=== PATIENT | male | born 1985 | race Asian ===

== ENCOUNTER 2016-10-01 13:38 | Inpatient (IN) | payer OTHER ==
[2016-10-01] VITALS (14 sets, daily range): BP systolic 102–128; BP diastolic 60–79; PULSE 58–86; RESP 13–31; Ht 172.7 cm; Wt 68.3 kg
[~2016-10-01] VITALS: Ht 172.7 cm; Wt 68.3 kg
[2016-10-01] MEDS ORDERED: SOD CHLORIDE 0.9% 1,000 ML IV STA (15:37)
[2016-10-01] MEDS ORDERED: morphine 4 MG/ML VIAL IV STA (15:37)
[2016-10-01] MEDS ORDERED: ONDANSETRON 4 MG INJ IV STA (15:37)
[2016-10-01 15:52] LABS: ADD SCAN DIFF NO
[2016-10-01 15:56] LABS: BASOPHILS % 0.4 % (0.0-2.0); EOSINOPHILS # 0.3 10^3/ul (0.0-0.5); EOSINOPHILS % 2.6 % (0.0-7.0); HEMATOCRIT 42.4 % (42.0-52.0); HEMOGLOBIN 13.2 g/dl (14.0-18.0); LYMPHOCYTES # 2.7 10^3/ul (0.8-2.9); LYMPHOCYTES % 26.8 % (15.0-51.0); MEAN CORPUSCULAR HEMOGLOBIN 24.5 pg (29.0-33.0); MEAN CORPUSCULAR HGB CONC 31.1 g/dl (32.0-37.0); MEAN CORPUSCULAR VOLUME 78.7 fl (82.0-101.0); MEAN PLATELET VOLUME 10.7 fl (7.4-10.4); MONOCYTE # 0.6 10^3/ul (0.3-0.9); MONOCYTES % 5.8 % (0.0-11.0); NEUTROPHIL # 6.4 10^3/ul (1.6-7.5); NEUTROPHILS % 63.5 % (39.0-77.0); PLATELET COUNT 451 10^3/UL (140-415); RED BLOOD COUNT 5.39 10^6/ul (4.70-6.10); RED CELL DISTRIBUTION WIDTH 13.5 % (11.5-14.5)
[2016-10-01] MEDS ORDERED: PIPER-TAZO 3.375 GM IV (PMX) 100 ML IVPB ONE (16:00)
[2016-10-01 16:20] LABS: ALBUMIN 4.7 g/dl (3.3-4.9); ALBUMIN/GLOBULIN RATIO 1.09; BILIRUBIN,INDIRECT 0.2 mg/dl (0-1.1); BILIRUBIN,TOTAL 0.2 mg/dl (0.2-1.3); CALCIUM 9.8 mg/dl (8.4-10.2); CREATININE 0.82 mg/dl (0.61-1.24); POTASSIUM 4.4 mmol/L (3.5-5.1)
[2016-10-01 16:37] LABS: ADD UMIC YES; URINE BILIRUBIN (Dip) NEGATIVE (NEGATIVE); URINE BLOOD (Dip) NEGATIVE (NEGATIVE); URINE COLOR LT. YELLOW (YELLOW); URINE GLUCOSE (Dip) NEGATIVE (NEGATIVE); URINE KETONES (Dip) NEGATIVE (NEGATIVE); URINE LEUKOCYTE ESTERASE (Dip) TRACE (NEGATIVE); URINE NITRITE (Dip) NEGATIVE (NEGATIVE); URINE TOTAL PROTEIN (Dip) NEGATIVE (NEGATIVE); URINE UROBILINOGEN (Dip) 0.2 E.U./dL (0.1-1.0)
[2016-10-01] MEDS ORDERED: IOHEXOL 300MG/ML 150 ML BTL ONE (16:41)
[2016-10-01] MEDS ORDERED: SOD CHLORIDE 0.9% 100 ML ONE (16:41)
[2016-10-01 17:01] LABS: SQUAMOUS EPITHELIAL CELL,UR RARE; URINE RBCS NONE SEEN /HPF (0)
--- NOTE | 2016-10-01 17:13 | RADRPT ---
PROCEDURE: CT abdomen and pelvis with contrast. CLINICAL INDICATION: Abdominal pain. Perirectal abscess. TECHNIQUE: CT scan of the abdomen and pelvis with contrast was performed after the uneventful intravenous admin istration of 100 cc of Omnipaque-300. Coronal and sagittal reformatted images were obtained from the axial source images. The total exam CTDI equals 9.02 mGy and the total exam DLP equals 547.01 mGy-c m. One or more of the following dose reduction techniques were used: - Automated exposure control. - Adjustment of the mA and/or kV according to patient size. - Use of iterative reconstruction technique. COMPARISON: None available. FINDINGS: Visualized lower thorax: The visualized lung bases are clear. The visualized heart is unremarkable. Hepatobiliary system and spleen: The liver is normal in size and density with no focal hepatic lesion identified. There is no intra o r extrahepatic biliary ductal dilatation. The gallbladder is unremarkable. The spleen is unremarkabl e. The pancreas is unremarkable. Adrenal glands and genitourinary system: The adrenal glands are unremarkable. There are no renal masses or hydronephrosis. The urinary bladde r is unremarkable. The prostate gland and seminal vesicles are unremarkable. Gastrointestinal system: The stomach and small bowel are unremarkable. There is no evidence of bowel obstruction. The appendi x is in the right lower quadrant and is unremarkable. There is distal rectal wall thickening. There is a rim enhancing collection that is contiguous with the right lateral aspect of the distal rectum that extends posterolaterally and inferiorly into the right ischial rectal fossa and contains multi ple small foci of air measuring 3.3 x 2.9 cm in greatest axial dimension and 5.7 cm in craniocaudal dimension. There is inflammatory change in the surrounding subcutaneous fat. The collection does n ot extend to the skin surface. Peritoneum, vascular system, lymphatics: There is no free intraperitoneal air or free fluid. There is no mesenteric or retroperitoneal adenop athy. The aorta is nonaneurysmal. Musculoskeletal system: There are no concerning osseous lesions. IMPRESSION: 1. Perirectal abscess measuring 3.3 x 2.9 x 5.7 cm arising from the right lateral aspect of the dis dennys rectum extending posterolaterally and inferiorly into the right ischiorectal fossa with inflamma tory change in the surrounding gluteal soft tissues, but no extension to the skin surface. These findings discussed with Dr. Dr. Hardy in the ED at 1711 hours on 10/01/2016. RPTAT: HLBP .Nando Strong MD, MD Date Time Electronically viewed and signed by .Nando Strong MD, MD on 10/01/2016 17:13 .P/
[2016-10-01] MEDS ORDERED: ACETAMINOPHEN 325 MG TAB PO PRN ×3 (18:00→22:30)
[2016-10-01] MEDS ORDERED: ONDANSETRON 4 MG INJ IV PRN ×4 (18:00→22:30)
[2016-10-01] MEDS ORDERED: BUPIVACAINE 0.25%/EPI (SDV) 30 ML INJ ONE (18:20)
--- NOTE | 2016-10-01 18:43 | CONS ---
Date/Time of Note Date/Time of Note DATE: 10/01/16 TIME: 18:40 Assessment/Plan Assessment/Plan Chief Complaint/Hosp Course 31-year-old male with perirectal abscess * Patient will require incision and drainage * The above was discussed with the patient including all risks and benefits of the procedure including the possibility of future fistula formation and abscess recurrence requiring subsequent surgery. * He understands and agrees to treatment plan as outlined. Informed consent will be obtained and he will be scheduled for incision and drainage. Problems: Consultation Date/Type/Reason Admit Date/Time Date of Consultation: October 01, 2016 Type of Consultation: GENERAL SURGERY Reason for Consultation Perirectal abscess Hx of Present Illness Patient is an otherwise healthy 31-year-old male who presented to the emergency room complaining of perianal and rectal pain. This is been present for the past 2 weeks. He was seen by his PMD and referred for possible perirectal abscess. He denies any diarrhea/constipation. He reports that he did feel feverish, but he did not take his temperature. He denies any similar episodes of pain in the past. 14 point review systems was conducted and was negative except for that which is mentioned in HPI Past Medical History Medical History: no pertinent history Past Surgical History Past Surgical Hx: no surgical history Family History Significant Family History: no pertinent family hx Social History Alcohol Use: none Smoking Status: Never smoker Exam/Review of Systems Vital Signs Vitals Vital Signs Date Time Temp Pulse Resp B/P Pulse Ox O2 Delivery O2 Flow Rate FiO2 10/01/16 13:41 98.8 88 18 97/61 99 Exam GENERAL: Awake, alert, oriented x 3. No acute distress. SKIN: No jaundice. HEENT: PERRLA, EOMI, No Scleral Icterus NECK: Supple without JVD CARDIOVASCULAR: S1S2, regular rate and rhythm. No murmurs appreciated. RESPIRATORY: Clear to auscultation bilaterally. ABDOMEN: Soft, bowel sounds present, nondistended, nontender to palpation. RECTAL: There is erythema and induration of the right lateral perianal area. There is no fluctuance at skin level. EXTREMITIES: Free range of motion x 4. No cyanosis, edema, or clubbing. NEUROLOGIC: Cranial nerves II-XII are intact. Sensation is intact grossly. Results Result Diagram: 10/01/16 1550 10/01/16 1550 Results 24 hrs Laboratory Tests Test 10/01/16 15:42 10/01/16 15:50 Urine Color LT. YELLOW Urine Clarity CLEAR Urine pH 5.5 Urine Specific Media 1.010 Urine Ketones NEGATIVE Urine Nitrite NEGATIVE Urine Bilirubin NEGATIVE Urine Urobilinogen 0.2 E.U./dL Urine Leukocyte Esterase TRACE H Urine Microscopic RBC NONE SEEN Urine Microscopic WBC 0-2 Urine Squamous Epithelial Cells RARE Urine Hemoglobin NEGATIVE Urine Glucose NEGATIVE Urine Total Protein NEGATIVE White Blood Count 10.0 Red Blood Count 5.39 Hemoglobin 13.2 L Hematocrit 42.4 Mean Corpuscular Volume 78.7 L Mean Corpuscular Hemoglobin 24.5 L Mean Corpuscular Hemoglobin Concent 31.1 L Red Cell Distribution Width 13.5 Platelet Count 451 H Mean Platelet Volume 10.7 H Neutrophils % 63.5 Lymphocytes % 26.8 Monocytes % 5.8 Eosinophils % 2.6 Basophils % 0.4 Nucleated Red Blood Cells % 0.0 Neutrophils # 6.4 Lymphocytes # 2.7 Monocytes # 0.6 Eosinophils # 0.3 Basophils # 0.0 Nucleated Red Blood Cells # 0.0 Sodium Level 139 Potassium Level 4.4 Chloride Level 97 Carbon Dioxide Level 31 Anion Gap 15 Blood Urea Nitrogen 11 Creatinine 0.82 Glucose Level 105 Calcium Level 9.8 Total Bilirubin 0.2 Direct Bilirubin 0.00 Indirect Bilirubin 0.2 Aspartate Amino Transf (AST/SGOT) 29 Alanine Aminotransferase (ALT/SGPT) 93 H Alkaline Phosphatase 185 H Total Protein 9.0 H Albumin 4.7 Globulin 4.30 H Albumin/Globulin Ratio 1.09 Lipase 30 Procedures Procedures PROCEDURE: CT abdomen and pelvis with contrast. CLINICAL INDICATION: Abdominal pain. Perirectal abscess. TECHNIQUE: CT scan of the abdomen and pelvis with contrast was performed after the uneventful intravenous administration of 100 cc of Omnipaque-300. Coronal and sagittal reformatted images were obtained from the axial source images. The total exam CTDI equals 9.02 mGy and the total exam DLP equals 547.01 mGy-cm. One or more of the following dose reduction techniques were used: - Automated exposure control. - Adjustment of the mA and/or kV according to patient size. - Use of iterative reconstruction technique. COMPARISON: None available. FINDINGS: Visualized lower thorax: The visualized lung bases are clear. The visualized heart is unremarkable. Hepatobiliary system and spleen: The liver is normal in size and density with no focal hepatic lesion identified. There is no intra or extrahepatic biliary ductal dilatation. The gallbladder is unremarkable. The spleen is unremarkable. The pancreas is unremarkable. Adrenal glands and genitourinary system: The adrenal glands are unremarkable. There are no renal masses or hydronephrosis. The urinary bladder is unremarkable. The prostate gland and seminal vesicles are unremarkable. Gastrointestinal system: The stomach and small bowel are unremarkable. There is no evidence of bowel obstruction. The appendix is in the right lower quadrant and is unremarkable. There is distal rectal wall thickening. There is a rim enhancing collection that is contiguous with the right lateral aspect of the distal rectum that extends posterolaterally and inferiorly into the right ischial rectal fossa and contains multiple small foci of air measuring 3.3 x 2.9 cm in greatest axial dimension and 5.7 cm in craniocaudal dimension. There is inflammatory change in the surrounding subcutaneous fat. The collection does not extend to the skin surface. Peritoneum, vascular system, lymphatics: There is no free intraperitoneal air or free fluid. There is no mesenteric or retroperitoneal adenopathy. The aorta is nonaneurysmal. Musculoskeletal system: There are no concerning osseous lesions. IMPRESSION: 1. Perirectal abscess measuring 3.3 x 2.9 x 5.7 cm arising from the right lateral aspect of the distal rectum extending posterolaterally and inferiorly into the right ischiorectal fossa with inflammatory change in the surrounding gluteal soft tissues, but no extension to the skin surface. These findings discussed with Dr. Dr. Nichole in the ED at 1711 hours on 2016. RPTAT: HLBP .Nando Strong MD, MD Date Time Electronically viewed and signed by .Nando Strong MD, MD on 10/01/2016 17:13 .P/ CC: AYAAN NICHOLE MD, MICHAEL A. MD October 01, 2016 18:43
[2016-10-01] MEDS ORDERED: PROPOFOL 20 ML ONE (18:44)
[2016-10-01] MEDS ORDERED: METOCLOPRAMIDE 10 MG INJ ONE (18:44)
[2016-10-01] MEDS ORDERED: MIDAZOLAM 1 MG/ML 2 ML INJ ONE (18:44)
[2016-10-01] MEDS ORDERED: SUCCINYLCHOLINE CHLORIDE 100 MG/5 ML SYG IV ONE (18:44)
[2016-10-01] MEDS ORDERED: ONDANSETRON 4 MG INJ ONE (18:44)
--- NOTE | 2016-10-01 18:59 | ERA ---
ER Documentation Chief Complaint Date/Time DATE: 10/01/16 TIME: 18:57 Chief Complaint SENT BY PMD FOR PERIRECTAL ABCESS X 2 WEEKS HPI Patient is a 31-year-old male with no medical problems who presents for a perirectal abscess. The patient has had pain in his buttock for the past 2 weeks. He had fevers as well. He had pain when he sits down. He feels says that it is slightly better now and he was on Cipro and Flagyl. The patient has rectal bleeding. He went to his primary doctor today who sent him to the ER for surgical evaluation. Upon review of old medical records this is the patient 's first visit to the emergency department. ROS All systems reviewed and are negative except as per history of present illness. Allergies Allergies: Coded Allergies: No Known Allergy (Unverified , 10/01/16) PMhx/Soc Medical and Surgical Hx: pt denies Medical Hx, pt denies Surgical Hx Hx Alcohol Use: No Hx Substance Use: No Hx Tobacco Use: No Smoking Status: Never smoker FmHx Family History: No diabetes Physical Exam Vitals Vital Signs Date Time Temp Pulse Resp B/P Pulse Ox O2 Delivery O2 Flow Rate FiO2 10/01/16 13:41 98.8 88 18 97/61 99 Physical Exam Const: Mild distress Head: Atraumatic Eyes: Normal Conjunctiva ENT: Normal External Ears, Nose and Mouth. Neck: Full range of motion..~ No meningismus. Resp: Clear to auscultation bilaterally Cardio: Regular rate and rhythm, no murmurs Abd: Soft, non tender, non distended. Normal bowel sounds Skin: No petechiae or rashes Back: No midline or flank tenderness Ext: No cyanosis, or edema Neur: Awake and alert Rectal: Patient has induration of the right gluteus area without obvious fluctuance, there is no obvious hemorrhage from the rectum at this time Result Diagram: 10/01/16 1550 10/01/16 1550 Results 24 hrs Laboratory Tests Test 10/01/16 15:42 10/01/16 15:50 Urine Color LT. YELLOW Urine Clarity CLEAR Urine pH 5.5 Urine Specific Bradley 1.010 Urine Ketones NEGATIVE Urine Nitrite NEGATIVE Urine Bilirubin NEGATIVE Urine Urobilinogen 0.2 E.U./dL Urine Leukocyte Esterase TRACE Urine Microscopic RBC NONE SEEN/HPF Urine Microscopic WBC 0-2/HPF Urine Squamous Epithelial Cells RARE Urine Hemoglobin NEGATIVE Urine Glucose NEGATIVE% Urine Total Protein NEGATIVE White Blood Count 10.010^3/ul Red Blood Count 5.3910^6/ul Hemoglobin 13.2g/dl Hematocrit 42.4% Mean Corpuscular Volume 78.7fl Mean Corpuscular Hemoglobin 24.5pg Mean Corpuscular Hemoglobin Concent 31.1g/dl Red Cell Distribution Width 13.5% Platelet Count 29029^3/UL Mean Platelet Volume 10.7fl Neutrophils % 63.5% Lymphocytes % 26.8% Monocytes % 5.8% Eosinophils % 2.6% Basophils % 0.4% Nucleated Red Blood Cells % 0.0/100WBC Neutrophils # 6.410^3/ul Lymphocytes # 2.710^3/ul Monocytes # 0.610^3/ul Eosinophils # 0.310^3/ul Basophils # 0.010^3/ul Nucleated Red Blood Cells # 0.010^3/ul Sodium Level 139mmol/L Potassium Level 4.4mmol/L Chloride Level 97mmol/L Carbon Dioxide Level 31mmol/L Anion Gap 15 Blood Urea Nitrogen 11mg/dl Creatinine 0.82mg/dl Glucose Level 105mg/dl Calcium Level 9.8mg/dl Total Bilirubin 0.2mg/dl Direct Bilirubin 0.00mg/dl Indirect Bilirubin 0.2mg/dl Aspartate Amino Transf (AST/SGOT) 29IU/L Alanine Aminotransferase (ALT/SGPT) 93IU/L Alkaline Phosphatase 185IU/L Total Protein 9.0g/dl Albumin 4.7g/dl Globulin 4.30g/dl Albumin/Globulin Ratio 1.09 Lipase 30U/L Current Medications Medications (Trade) Dose Ordered Sig/Isabell Route PRN Reason Start Time Stop Time Status Last Admin Dose Admin Sodium Chloride (NS) 1,000 ml @ 1,000 mls/hr Q1H STAT IV 10/01/16 15:37 10/01/16 16:36 DC 10/01/16 15:59 Morphine Sulfate (morphine) 4 mg ONCE STAT IV 10/01/16 15:37 10/01/16 15:38 DC Ondansetron HCl 4 mg 4 mg ONCE STAT IV 10/01/16 15:37 10/01/16 15:38 DC Piperacillin Sod/ Tazobactam Sod (Zosyn 3.375gm/ 100 ml (Pmx)) 100 ml @ 200 mls/hr ONCE ONCE IVPB 10/01/16 16:00 10/01/16 16:29 DC 10/01/16 16:00 IV Flush 10 ml 10 ml STK-MED ONCE .ROUTE 10/01/16 16:41 10/01/16 16:42 DC 10/01/16 17:11 Sodium Chloride (NS) 100 ml @ ud STK-MED ONCE .ROUTE 10/01/16 16:41 10/01/16 16:42 DC 10/01/16 17:11 Iohexol (Omnipaque 300mg/ ml) 150 ml STK-MED ONCE .ROUTE 10/01/16 16:41 10/01/16 16:42 DC 10/01/16 17:12 Ondansetron HCl (Zofran Inj) 4 mg BRIDGE ORDER PRN IV NAUSEA AND/OR VOMITING 10/01/16 18:00 10/02/16 17:59 Acetaminophen (Tylenol Tab) 650 mg ER BRIDGE PRN PO MILD PAIN/FEVER 10/01/16 18:00 10/02/16 17:59 Bupivacaine HCl/ Epinephrine Bitart (Marcaine 0.25%/ Epi (Sdv) 30 ml) 30 ml STK-MED ONCE .ROUTE 10/01/16 18:20 10/01/16 18:21 DC 10/01/16 18:35 Procedures/MDM CT abdomen and pelvis shows deep ischio rectal fossa infection with abscess per radiology. Patient is a 31-year-old male presents with acute perirectal abscess. CT confirmed deep perirectal abscess. The patient was given Zosyn empirically. His laboratory studies are basically normal. I spoke with Dr. Ramirez the surgeon on-call who will see the patient and likely take the patient to the operating room for removal. The patient will be admitted to the care of Dr. Joseph as he has [facility] insurance and Dr. Joseph is admitting for [facility]. The patient will be admitted to a medical surgical bed. Departure Diagnosis: Primary Impression: Perirectal abscess Condition: AYANA Howell MD October 01, 2016 18:59
[2016-10-01] MEDS ORDERED: HYDROmorphONE 2 MG/ML SYG ONE (19:18)
[2016-10-01] MEDS ORDERED: METOCLOPRAMIDE 10 MG INJ IV PRN (19:30)
[2016-10-01] MEDS ORDERED: MEPERIDINE 25 MG INJ IV PRN (19:30)
[2016-10-01] MEDS ORDERED: DIPHENHYDRAMINE 50 MG INJ IV PRN (19:30)
[2016-10-01] MEDS ORDERED: HYDROmorphONE (0.2 MG/ML) 10ML SYG IV PRN ×3 (19:30)
[2016-10-01] MEDS ORDERED: THROMBIN 5000 UNIT VIAL ONE (19:31)
[2016-10-01] MEDS ORDERED: KETOROLAC 30 MG INJ ONE (19:37)
--- NOTE | 2016-10-01 19:47 | OPR ---
Date/Time of Note Date/Time of Note DATE: 10/01/16 TIME: 19:42 Operative Report Procedure Date: October 01, 2016 Preoperative Diagnosis Perirectal abscess Postoperative Diagnosis Perirectal abscess Operation Performed Incision and drainage of perirectal abscess Surgeon: HINA DE LA CRUZ MD Anesthesia: general Anesthesiologist: TITUS BERTRAND MD Estimated Blood Loss: minimal Specimens Wound cultures Complications: None Pt Condition Post Procedure: stable Disposition: PACU Indications The patient is an otherwise healthy 31-year-old male who presented to the emergency room complaining of a 2 week history of rectal pain. A CT scan of the abdomen and pelvis showed an approximately 5 cm perirectal abscess. Patient was scheduled for incision and drainage. All risks and benefits of the procedure including, but not limited to: Prolonged wound infection, prolonged wound healing, excessive bleeding, incontinence to feces and/or gas which may be temporary versus permanent, abscess recurrence, possible fistula formation, need for subsequent surgery, etc. were all explained to the patient in full detail. He fully understood and wished to proceed with the procedure. Informed consent was obtained. Operative\Procedure Findings History of rectal abscess with pus Procedure Description The patient was brought to the operating room and placed supine on the operating table. Bilateral sequential compression devices were placed on both lower extremities. A dose of broad-spectrum perioperative intravenous antibiotics was given. After the induction of smooth general endotracheal anesthesia the patient was placed in the lithotomy position using Juan stirrups with pressure points padded. The perineal area was then prepped and draped in standard surgical fashion. After performance of the surgical timeout digital rectal exam was performed which showed some induration in the right lateral rectal wall. An 18-gauge needle connected to a 10 cc syringe was used to perform aspiration in the right ischiorectal fossa. The area of the abscess was confirmed with aspiration of pus. A cruciate incision was then made over this area using a 15 blade scalpel. Blunt dissection was done into the subcutaneous tissues. The abscess cavity was reached and copious amounts of pus was drained. Microbiological cultures were taken. Using blunt finger dissection the loculations of the abscess cavity were broken up. Wound cavity was then irrigated with copious amounts of warm normal saline. Hemostasis was then inspected for and obtained using combination of direct pressure and Bovie electrocautery. With adequate hemostasis obtained wound was then packed with 1 inch iodoform packing soaked in thrombin. The wound was then cleaned and sterile dressings were applied. Patient was then awoken from anesthesia and transferred to the recovery room in stable condition. All counts were correct at the end of the case 2 HINA DE LA CRUZ MD October 01, 2016 19:47
[2016-10-01] MEDS ORDERED: HYDROCODONE/APAP (10/325) TAB PO PRN (20:00)
[2016-10-01] MEDS ORDERED: KETOROLAC 30 MG INJ IV PRN (20:00)
[2016-10-01] MEDS ORDERED: DEXTROSE 5%-0.45% NACL 1,000 ML IV SCH (20:00)
[2016-10-01] MEDS ORDERED: HYDROCODONE/APAP (5/325) TAB PO PRN (20:00)
[2016-10-01] MEDS: DOCUSATE SODIUM 100 MG CAP PO SCH (21:00)
--- NOTE | 2016-10-01 22:28 | QN ---
Documentation Comment [id number] MADALYN ESPAÑA MD October 01, 2016 22:28
[2016-10-01] MEDS ORDERED: DOCUSATE SODIUM 100 MG CAP PO PRN (22:30)
[2016-10-01] MEDS ORDERED: MAGNESIUM HYDROXIDE 30ML CUP PO PRN (22:30)
[2016-10-01] MEDS ORDERED: NACL 0.9% 3 ML SYG IV SCH (22:30)
[2016-10-01] MEDS: DEXTROSE 5%-0.45% NACL 1,000 ML IV SCH (22:45)
[2016-10-01] MEDS: AMPICILLIN/SULB 3 GM/NS (PMX) 100 ML IVPB SCH (22:45)
--- NOTE | 2016-10-01 23:19 | HP ---
DATE OF ADMISSION: 10/01/2016 HISTORY OF PRESENT ILLNESS: The patient is 31-year-old male with no significant past medical histor y, presented with rectal pain for some time, and the patient has tried antibiotic as an outpatient, noted to have perirectal abscess, was seen by Dr. Julio Cesar Ramirez and underwent incision and drainage of the perirectal abscess. The patient is being seen in the recovery room. PAST MEDICAL HISTORY: Negative for diabetes, hypertension. ALLERGY HISTORY: NEGATIVE. FAMILY HISTORY: Negative. SOCIAL HISTORY: Negative. MEDICATIONS AT HOME: None. REVIEW OF SYSTEMS: HEENT: Unremarkable. RESPIRATORY: Unremarkable. CARDIOVASCULAR: Unremarkable. ABDOMEN: Unremarkable. EXTREMITIES: As mentioned above. CENTRAL NERVOUS SYSTEM: Unremarkable. SKIN: As mentioned above. PHYSICAL EXAMINATION: GENERAL: The patient is awake, alert. VITAL SIGNS: Stable. HEENT: Head is atraumatic, normocephalic. Pupils equal, reactive to light. NECK: Supple. No JVD. LUNGS: Clear. CARDIOVASCULAR: S1, S2 normal. ABDOMEN: Soft, nontender. Bowel sounds present. No palpable mass. EXTREMITIES: No cyanosis, clubbing, edema. SKIN: The patient has dressing in the back area noted. IMPRESSION: 1. Perirectal abscess, status post incision and drainage. 2. The patient has abnormal LFT. PLAN: Obtain laboratory data. DVT prophylaxis, antibiotics, wound care, pain medication. Orders w ere done. Dictated By: MADALYN VILLA/LAVINIA Conf#: [id number] DID#: [id number]
[2016-10-02] MEDS: AMPICILLIN/SULB 3 GM/NS (PMX) 100 ML IVPB SCH ×3 (02:52→14:11)
[2016-10-02] MEDS: PANTOPRAZOLE 40 MG INJ IV SCH (05:33)
[2016-10-02 05:37] LABS: ADD SCAN DIFF NO
[2016-10-02] MEDS: morphine 4 MG/ML VIAL IV PRN ×2 (05:37→18:10)
[2016-10-02 05:49] LABS: BASOPHILS % 0.3 % (0.0-2.0); EOSINOPHILS # 0.3 10^3/ul (0.0-0.5); HEMATOCRIT 32.9 % (42.0-52.0); HEMOGLOBIN 10.3 g/dl (14.0-18.0); LYMPHOCYTES # 2.6 10^3/ul (0.8-2.9); LYMPHOCYTES % 29.6 % (15.0-51.0); MEAN CORPUSCULAR HEMOGLOBIN 24.8 pg (29.0-33.0); MEAN CORPUSCULAR HGB CONC 31.3 g/dl (32.0-37.0); MEAN CORPUSCULAR VOLUME 79.1 fl (82.0-101.0); MEAN PLATELET VOLUME 10.7 fl (7.4-10.4); MONOCYTE # 0.8 10^3/ul (0.3-0.9); MONOCYTES % 8.9 % (0.0-11.0); NEUTROPHIL # 5.1 10^3/ul (1.6-7.5); NEUTROPHILS % 57.1 % (39.0-77.0); PLATELET COUNT 380 10^3/UL (140-415); RED BLOOD COUNT 4.16 10^6/ul (4.70-6.10); RED CELL DISTRIBUTION WIDTH 13.5 % (11.5-14.5); WHITE BLOOD COUNT 8.9 10^3/ul (4.8-10.8)
[2016-10-02 06:04] LABS: ALBUMIN 3.5 g/dl (3.3-4.9); ALBUMIN/GLOBULIN RATIO 1.2; BILIRUBIN,INDIRECT 0.1 mg/dl (0-1.1); BILIRUBIN,TOTAL 0.1 mg/dl (0.2-1.3); CREATININE 0.78 mg/dl (0.61-1.24); POTASSIUM 4.1 mmol/L (3.5-5.1); TOTAL PROTEIN 6.4 g/dl (6.1-8.1)
[2016-10-02 07:29] VITALS: BP 100/58; RESP 17
[2016-10-02] MEDS: DOCUSATE SODIUM 100 MG CAP PO SCH ×2 (08:43→21:20)
[2016-10-02] MEDS: ENOXAPARIN 40 MG/0.4 ML SYG SC SCH (09:12)
[2016-10-02] MEDS: DEXTROSE 5%-0.45% NACL 1,000 ML IV SCH (12:10)
--- NOTE | 2016-10-02 18:17 | PN ---
Date/Time of Note Date/Time of Note DATE: 10/02/16 TIME: 18:16 Assessment/Plan Lines/Catheters IV Catheter Type (from Nrsg): Peripheral IV Assessment/Plan Assessment/Plan 31-year-old male status post incision and drainage of perirectal abscess postop day #1 * Packing removed * Continue local wound care with dry dressing as needed * Follow-up cultures * Surgically stable for discharge home when medically cleared * Follow-up in office in 1-2 weeks Subjective 24 Hr Interval Summary Doing well. Pain controlled. Afebrile. Exam/Review of Systems Vital Signs Vitals Vital Signs Date Time Temp Pulse Resp B/P Pulse Ox O2 Delivery O2 Flow Rate FiO2 10/02/16 07:29 97.8 59 17 100/58 96 10/01/16 22:30 Room Air 10/01/16 20:00 6.0 Intake and Output 10/01/16 10/01/16 10/02/16 15:00 23:00 07:00 Intake Total 2200 ml 370 ml Output Total 10 ml Balance 2190 ml 370 ml Exam Free Text/Dictation GENERAL: Awake, alert, oriented x 3. No acute distress. CARDIOVASCULAR: S1S2, regular rate and rhythm. No murmurs appreciated. RESPIRATORY: Clear to auscultation bilaterally. ABDOMEN: Soft, bowel sounds present, nondistended, nontender to palpation. WOUND: Clean, cellulitis improved. No drainage. EXTREMITIES: Free range of motion x 4. No cyanosis, edema, or clubbing. Results Result Diagram: 10/02/16 0440 10/02/16 0440 HINA DE LA CRUZ MD Oct 02, 2016 18:17
--- NOTE | 2016-10-02 19:20 | PN ---
Date/Time of Note Date/Time of Note DATE: 10/02/16 TIME: 19:19 Assessment/Plan VTE Prophylaxis VTE Prophylaxis Intervention: other Lines/Catheters IV Catheter Type (from Nrsg): Peripheral IV Assessment/Plan Chief Complaint/Hosp Course IMPRESSION: 1. Perirectal abscess, status post incision and drainage. 2. The patient has abnormal LFT. plan pain meds antibiotic Problems: Subjective 24 Hr Interval Summary Cardiovascular: no complaints Gastrointestinal: no complaints, other (pain better ) Exam/Review of Systems Vital Signs Vitals Vital Signs Date Time Temp Pulse Resp B/P Pulse Ox O2 Delivery O2 Flow Rate FiO2 10/02/16 07:29 97.8 59 17 100/58 96 10/01/16 22:30 Room Air 10/01/16 20:00 6.0 Intake and Output 10/01/16 10/01/16 10/02/16 15:00 23:00 07:00 Intake Total 2200 ml 370 ml Output Total 10 ml Balance 2190 ml 370 ml Exam Neck: supple Respiratory: clear to auscultation Cardiovascular: regular rate and rhythm Gastrointestinal: soft Musculoskeletal: nl extremities to inspection Results Result Diagram: 10/02/16 0440 10/02/16 0440 Results 24 hrs Laboratory Tests Test 10/02/16 04:40 White Blood Count 8.9 Red Blood Count 4.16 #L Hemoglobin 10.3 #L Hematocrit 32.9 #L Mean Corpuscular Volume 79.1 L Mean Corpuscular Hemoglobin 24.8 L Mean Corpuscular Hemoglobin Concent 31.3 L Red Cell Distribution Width 13.5 Platelet Count 380 Mean Platelet Volume 10.7 H Neutrophils % 57.1 Lymphocytes % 29.6 Monocytes % 8.9 Eosinophils % 3.0 Basophils % 0.3 Nucleated Red Blood Cells % 0.0 Neutrophils # 5.1 Lymphocytes # 2.6 Monocytes # 0.8 Eosinophils # 0.3 Basophils # 0.0 Nucleated Red Blood Cells # 0.0 Sodium Level 141 Potassium Level 4.1 Chloride Level 107 # Carbon Dioxide Level 31 Anion Gap 7 #L Blood Urea Nitrogen 12 Creatinine 0.78 Glucose Level 118 Calcium Level 8.0 L Total Bilirubin 0.1 L Direct Bilirubin 0.00 Indirect Bilirubin 0.1 Aspartate Amino Transf (AST/SGOT) 26 Alanine Aminotransferase (ALT/SGPT) 61 Alkaline Phosphatase 102 Total Protein 6.4 # Albumin 3.5 # Globulin 2.90 Albumin/Globulin Ratio 1.20 Medications Medications Current Medications Ampicillin Sodium/ Sulbactam Sodium (Unasyn 3gm/NS (Pmx)) 100 ml @ 200 mls/hr Q6H IVPB Last administered on 10/02/16 14:11; Admin Dose 200 MLS/HR; Start at 20:00; Stop 10/02/16 at 19:59 Morphine Sulfate (morphine) 4 mg Q3H PRN IV PAIN LEVEL 6-10 Last administered on 10/02/16 18:10; Admin Dose 4 MG; Start 10/01/16 at 20:00 Acetaminophen/ Hydrocodone Bitart ([place] (5/325)) 1 tab Q6H PRN PO PAIN LEVEL 6 -10; Start 10/01/16 at 20:00 Acetaminophen/ Hydrocodone Bitart ([place] (10/325)) 1 tab Q6H PRN PO PAIN; Start 10/01/16 at 20:00 Ketorolac Tromethamine (Toradol) 30 mg Q6H PRN IV PAIN; Start 10/01/16 at 20:00 ; Stop 10/04/16 at 19:59 Acetaminophen (Tylenol Tab) 650 mg Q6H PRN PO PAIN AND OR ELEVATED TEMP; Start 10/01/16 at 20:00 Ondansetron HCl (Zofran Inj) 4 mg Q6H PRN IV NAUSEA AND/OR VOMITING; Start at 20:00 Docusate Sodium 100 mg 100 mg BID PO Last administered on 10/02/16 08:43; Admin Dose 100 MG; Start 10/01/16 at 21:00 Dextrose/Sodium Chloride (D5-1/2ns) 1,000 ml @ 70 mls/hr [id number] IV Last administered on 10/02/16 12:10; Admin Dose 70 MLS/HR; Start 10/01/16 at 22:01 Ondansetron HCl (Zofran Inj) 4 mg Q6H PRN IV NAUSEA AND/OR VOMITING; Start at 22:30 Acetaminophen (Tylenol Tab) 650 mg Q6H PRN PO PAIN LEVEL 1-3 OR FEVER; Start at 22:30 Docusate Sodium (Colace) 100 mg Q12H PRN PO CONSTIPATION; Start 10/01/16 at 22: 30 Magnesium Hydroxide (Milk Of Mag) 30 ml DAILY PRN PO CONSTIPATION; Start at 22:30 Pantoprazole (Protonix Iv) 40 mg DAILY@06 IV Last administered on 10/02/16 05: 33; Admin Dose 40 MG; Start 10/02/16 at 06:00 Enoxaparin Sodium 40 mg 40 mg DAILY SC Last administered on 10/02/16 09:12; Admin Dose 40 MG; Start 10/02/16 at 09:00 Piperacillin Sod/ Tazobactam Sod (Zosyn 3.375gm/ 100 ml (Pmx)) 100 ml @ 200 mls /hr Q8 IVPB ; Start 10/02/16 at 22:00 MADALYN ESPAÑA MD Oct 02, 2016 19:20
[2016-10-02 20:04] VITALS: BP 118/73; RESP 20
[2016-10-02] MEDS: PIPER-TAZO 3.375 GM IV (PMX) 100 ML IVPB SCH (21:20)
[2016-10-03] MEDS: DEXTROSE 5%-0.45% NACL 1,000 ML IV SCH ×2 (03:01→16:55)
[2016-10-03] MEDS: PIPER-TAZO 3.375 GM IV (PMX) 100 ML IVPB SCH ×2 (05:39→14:56)
[2016-10-03] MEDS: PANTOPRAZOLE 40 MG INJ IV SCH (05:39)
[2016-10-03 07:37] VITALS: BP 102/65; RESP 16
[2016-10-03] MEDS: DOCUSATE SODIUM 100 MG CAP PO SCH (09:49)
[2016-10-03] MEDS: ENOXAPARIN 40 MG/0.4 ML SYG SC SCH (09:58)
--- NOTE | 2016-10-03 14:40 | PN ---
Date/Time of Note Date/Time of Note DATE: 10/03/16 TIME: 14:40 Assessment/Plan VTE Prophylaxis VTE Prophylaxis Intervention: ambulation Lines/Catheters IV Catheter Type (from Nrsg): Peripheral IV Assessment/Plan Chief Complaint/Hosp Course 1. Perirectal abscess, status post incision and drainage. 2. Abnormal LFT. Problems: Subjective 24 Hr Interval Summary Constitutional: improved, no complaints Exam/Review of Systems Vital Signs Vitals Vital Signs Date Time Temp Pulse Resp B/P Pulse Ox O2 Delivery O2 Flow Rate FiO2 10/03/16 07:37 97.9 56 16 102/65 98 10/01/16 22:30 Room Air 10/01/16 20:00 6.0 Intake and Output 10/02/16 10/02/16 10/03/16 15:00 23:00 07:00 Intake Total 930 ml 515 ml 1340 ml Output Total 1950 ml 2000 ml Balance 930 ml -1435 ml -660 ml Exam Constitutional: alert, oriented Neck: supple Respiratory: clear to auscultation Cardiovascular: regular rate and rhythm Results Result Diagram: 10/02/16 0440 10/02/16 0440 Medications Medications Current Medications Morphine Sulfate (morphine) 4 mg Q3H PRN IV PAIN LEVEL 6-10 Last administered on 10/02/16 18:10; Admin Dose 4 MG; Start 10/01/16 at 20:00 Acetaminophen/ Hydrocodone Bitart ([place] (5/325)) 1 tab Q6H PRN PO PAIN LEVEL 6 -10; Start 10/01/16 at 20:00 Acetaminophen/ Hydrocodone Bitart ([place] (10/325)) 1 tab Q6H PRN PO PAIN; Start 10/01/16 at 20:00 Ketorolac Tromethamine (Toradol) 30 mg Q6H PRN IV PAIN; Start 10/01/16 at 20:00 ; Stop 10/04/16 at 19:59 Acetaminophen (Tylenol Tab) 650 mg Q6H PRN PO PAIN AND OR ELEVATED TEMP; Start 10/01/16 at 20:00 Docusate Sodium 100 mg 100 mg BID PO Last administered on 10/03/16 09:49; Admin Dose 100 MG; Start 10/01/16 at 21:00 Dextrose/Sodium Chloride (D5-1/2ns) 1,000 ml @ 70 mls/hr [id number] IV Last administered on 10/03/16 03:01; Admin Dose 70 MLS/HR; Start 10/01/16 at 22:01 Ondansetron HCl (Zofran Inj) 4 mg Q6H PRN IV NAUSEA AND/OR VOMITING; Start at 22:30 Acetaminophen (Tylenol Tab) 650 mg Q6H PRN PO PAIN LEVEL 1-3 OR FEVER; Start at 22:30 Docusate Sodium (Colace) 100 mg Q12H PRN PO CONSTIPATION; Start 10/01/16 at 22: 30 Magnesium Hydroxide (Milk Of Mag) 30 ml DAILY PRN PO CONSTIPATION; Start at 22:30 Pantoprazole (Protonix Iv) 40 mg DAILY@06 IV Last administered on 10/03/16 05: 39; Admin Dose 40 MG; Start 10/02/16 at 06:00 Enoxaparin Sodium 40 mg 40 mg DAILY SC Last administered on 10/03/16 09:58; Admin Dose 40 MG; Start 10/02/16 at 09:00 Piperacillin Sod/ Tazobactam Sod (Zosyn 3.375gm/ 100 ml (Pmx)) 100 ml @ 200 mls /hr Q8 IVPB Last administered on 10/03/16 05:39; Admin Dose 200 MLS/HR; Start 10/02/16 at 22:00 RODNEY VALLEJO Oct 03, 2016 14:40
--- NOTE | 2016-10-03 17:31 | PDOCDIS ---
Discharge Instructions CONDITION Patient Condition: Stable HOME CARE INSTRUCTIONS: Diet Instructions: Regular ACTIVITY: Activity Restrictions: Slowly Increase Activity Bathing Restrictions: Activity Restrictions Comment: keep wound dry w gauze FOLLOW UP/APPOINTMENTS Appointments f/u own pcp [address] schmitt 1 wk MADALYN ESPAÑA MD Oct 03, 2016 17:31
[2016-10-03] MEDS ORDERED: AMOX1TAB10 PO (17:34)
[2016-10-03] MEDS ORDERED: ACET325T40 PO (17:34)
[2016-10-03] MEDS ORDERED: DOCU-216 PO (17:34)
== END 2016-10-03 19:00 | disposition home or self-care (01) | DRG 395 ==
LOC: E/R 13:38 → SDS 18:38 → MS2 18:39
PROVIDERS: ADMIT Internal Medicine Nephrology; ATTEND Internal Medicine Nephrology
PROC: 0J9B0ZX Drainage of Perineum Subcutaneous Tissue and Fascia, Open Approach, Diagnostic (ICD-10-PCS; principal; 2016-10-01 16:25)
DX: K61.1 Rectal abscess (principal); R94.5 Abnormal results of liver function studies
CPT/HCPCS: 36415; 74177; 80053; 81001; 83690; 85025; 87070; 87075; 96365; C9113; J0295; J1170; J1650; J1885; J2250; J2270; J2405; J2543; J2765; J7030; J7042; J7999; Q9967